=== PATIENT | female | born 1970 | race Caucasian/White ===

== ENCOUNTER 2016-10-01 13:24 | Emergency (ER) | payer BC | END 2016-10-01 15:30 | disposition home or self-care (01) | LOC: ER 13:24 | DX: M54.6 Pain in thoracic spine (principal); F41.9 Anxiety disorder, unspecified; Z90.49 Acquired absence of other specified parts of digestive tract; Z79.899 Other long term (current) drug therapy | CPT/HCPCS: 36415 ==